=== PATIENT | female | born 1995 | race Two or more races ===

== ENCOUNTER 2018-09-21 04:16 | Day surgery (SDC) | payer MEDICAID ==
[~2018-09-21] VITALS: Ht 162.6 cm; Wt 61.2 kg
[2018-09-21] MEDS ORDERED: SODIUM CHLORIDE 0.9% 1,000 ML IVB ONE (04:58)
[2018-09-21] MEDS ORDERED: HYDROmorphone HCL 2 MG/ML VL IV ONE (05:00)
[2018-09-21] MEDS ORDERED: ONDANSETRON HCL 4 MG/2 ML VIAL IV ONE ×2 (05:00→12:15)
[2018-09-21 05:29] LABS: Basophils # (auto) 0 uL; Basophils % (auto) 0.3 % (0.0-2.0); Eosinophils # (auto) 0 uL; Eosinophils % (auto) 0.1 % (0.0-7.0); Hematocrit 44.1 % (36.0-46.0); Hemoglobin 14.9 g/dL (12.2-16.2); Lymphocytes # (auto) 2.5 uL; Lymphocytes % (auto) 20.3 % (10.0-50.0); Mean Corpuscular Hemoglobin 32.7 pg (28.0-32.0); Mean Corpuscular Hgb Conc. 33.8 g/dL (32.0-36.0); Mean Corpuscular Volume 96.8 fL (80.0-100.0); Monocytes # (auto) 1.1 uL; Monocytes % (auto) 8.8 % (0.0-12.0); Neutrophils # (auto) 8.8 uL; Neutrophils % (auto) 70.5 % (37.0-80.0); Nucleated Red Blood Cells % 0.1 %; Platelet Count (auto) 240 10^3/uL (140-450); Red Blood Cells 4.56 10^6/uL (4.0-5.20); White Blood Cell 12.4 10^3/uL (4.4-10.8)
[2018-09-21 05:49] LABS: INR 0.93 (0.9-1.15); Partial Thromboplastin Time 25.4 sec (23.78-33.04)
[2018-09-21 05:53] LABS: Albumin 3.8 g/dL (3.4-5.0); BUN/Creatinine Ratio 13.3; Calcium 8.5 mg/dL (8.5-10.1); Potassium 3.5 mmol/L (3.5-5.1)
[2018-09-21 05:56] LABS: Bilirubin, Total 0.5 mg/dL (0.2-1.0); Total Protein 7.7 g/dL (6.4-8.2)
[2018-09-21] MEDS ORDERED: SODIUM CHLORIDE 0.9% 1,000 ML IV ONE (07:45)
[2018-09-21 08:24] LABS: Urine Amorphous Crystal FEW /hpf (None Seen); Urine Bacteria NONE SEEN /hpf (None Seen); Urine Blood 3+ /uL (Negative); Urine Mucus FEW (None Seen); Urine Specific Gravity 1.011 (1.001-1.035); Urine WBC 88 /hpf (0 - 5)
[2018-09-21] MEDS ORDERED: ceFAZolin 1GM/50ML 50 ML IV ONE (12:00)
[2018-09-21] MEDS ORDERED: NALOXONE HCL 0.4 MG/ML VIAL IV PRN (12:15)
[2018-09-21] MEDS ORDERED: HYDROmorphone HCL 2 MG/ML VL IV PRN (12:15)
[2018-09-21] MEDS ORDERED: SUCCINYLCHOLINE CHLORIDE 20 MG/ML 10ML VIAL IV ONE (12:17)
[2018-09-21] MEDS ORDERED: LIDOCAINE 1% INJ PF 5ML AMP ONE (12:17)
[2018-09-21] MEDS ORDERED: MIDAZOLAM HCL 1MG/1ML-2 ML VIAL ONE (12:18)
[2018-09-21] MEDS ORDERED: PROPOFOL 10 MG/ML 20 ML IV ONE (12:18)
[2018-09-21] MEDS ORDERED: ROCURONIUM 10MG/ML 10ML VIAL IV ONE (12:21)
[2018-09-21] MEDS ORDERED: fentaNYL CITRATE 100 MCG/2 ML VL ONE (12:31)
[2018-09-21] MEDS: HYDROmorphone HCL 2 MG/ML VL IV PRN ×2 (13:50→14:04)
[2018-09-21] MEDS ORDERED: LACTATED RINGER'S 1,000 ML IV SCH (14:04)
[2018-09-21] MEDS ORDERED: ONDANSETRON HCL 4 MG/2 ML VIAL IV PRN (14:15)
[2018-09-21 14:46] VITALS: BP 114/73
== END 2018-09-21 15:05 | disposition home or self-care (01) ==
LOC: EDBD 04:22 → ER 04:22 → SUR 04:23 → ER 12:03 → SUR 15:05
PROVIDERS: ATTEND Specialist
DX: O00.90 Unspecified ectopic pregnancy without intrauterine pregnancy (principal); G40.909 Epilepsy, unspecified, not intractable, without status epilepticus; G47.33 Obstructive sleep apnea (adult) (pediatric)
CPT/HCPCS: 58661; J1170; J3010; J7030; 36415; 76801; 76817; 80053; 81001; 82150; 83690; 84702; 85025; 85610; 85730; 86850; 86900; 86901; J0330; J0690; J2250; J2405; J2704

== ENCOUNTER 2023-10-12 16:48 | Emergency (ER) | payer MEDICAID ==
[~2023-10-12] VITALS: Ht 162.6 cm; Wt 81.0 kg
[2023-10-12 17:48] VITALS: PULSE 67; RESP 17; O2SAT 98
[2023-10-12] MEDS ORDERED: SODIUM CHLORIDE 0.9% 1,000 ML IV ONE (18:30)
[2023-10-12 19:25] LABS: Basophils # (auto) 0 10 ^3/uL (0-0.2); Basophils % (auto) 0.2 % (0.0-2.0); Eosinophils # (auto) 0.1 10 ^3/uL (0-0.8); Eosinophils % (auto) 0.8 % (0.0-7.0); Hematocrit 33.7 % (36.0-46.0); Hemoglobin 10.8 g/dL (12.2-16.2); Lymphocytes # (auto) 1.6 10 ^3/uL (0.4-5.4); Mean Corpuscular Hemoglobin 30.4 pg (28.0-32.0); Mean Corpuscular Hgb Conc. 32.1 g/dL (32.0-36.0); Mean Corpuscular Volume 94.7 fL (80.0-100.0); Monocytes # (auto) 0.6 10 ^3/uL (0-1.3); Neutrophils # (auto) 9.9 10 ^3/uL (1.6-8.6); Nucleated Red Blood Cells % 0.1 %; Red Blood Cells 3.56 10^6/uL (4.0-5.20); Red Cell Distribution Width 14.7 % (11.8-14.3); White Blood Cell 12.3 10^3/uL (4.4-10.8)
[2023-10-12 19:29] LABS: Urine Bacteria NONE SEEN /hpf (None Seen); Urine Blood 3+ /uL (Negative); Urine Clarity HAZY (Clear); Urine Color Yellow (Yellow); Urine Mucus FEW (None Seen); Urine Protein, UAD TRACE (Negative); Urine Specific Gravity 1.012 (1.001-1.035); Urine Urobilinogen Normal (Negative); Urine WBC 100 /hpf (0 - 5)
[2023-10-12 19:47] VITALS: PULSE 78; RESP 16; O2SAT 98
[2023-10-12 19:50] LABS: INR 0.93 (0.9-1.15); Prothrombin Time 9.8 sec (9.3-11.8)
[2023-10-12] MEDS ORDERED: cefTRIAXone 1GM/50ML D5W 50 ML IV ONE (20:00)
[2023-10-12 20:12] LABS: Chloride 110 mmol/L (98-107); Potassium 3.8 mmol/L (3.5-5.1); Sodium 140 mmol/L (136-145)
[2023-10-12 20:13] LABS: Anion Gap 6 (5-15); Calcium 8.2 mg/dL (8.7-10.4); Carbon Dioxide 24 mmol/L (20-30)
[2023-10-12 20:18] LABS: BUN/Creatinine Ratio 14.8 (10.0-20.0); Blood Urea Nitrogen 8 mg/dL (9-23); Glucose 108 mg/dL (74-106); Lipase 41 U/L (12-53)
[2023-10-12] MEDS ORDERED: CEPH500T PO (20:57)
[2023-10-12] MEDS ORDERED: ACET-1304 PO (20:57)
[2023-10-12 21:14] VITALS: BP 124/78; PULSE 80; RESP 15; TEMP 98.3; O2SAT 98
== END 2023-10-12 21:27 | disposition home or self-care (01) ==
LOC: EDUNIT# 16:48 → ER 16:48 → EDBD 16:48 → ER 21:27
DX: R55 Syncope and collapse (principal); N39.0 Urinary tract infection, site not specified; R07.89 Other chest pain; Z79.899 Other long term (current) drug therapy
CPT/HCPCS: 36415; 70450; 71045; 74176; 76856; 80048; 81001; 81025; 82962; 83605; 83690; 84484; 85025; 85610; 85730; 87040; 96361; 96365; 99285; J0696; J7030